=== PATIENT | female | born 1975 | race Caucasian/White ===

== ENCOUNTER → 2021-04-28 14:50 | Outpatient (CLI) | payer BC, SELFPAY ==
--- NOTE | ~2021-04-28 | MR_ITS ---
EXAMINATION: MR thoracic spine wo con DATE: 04/28/2021 16:00 INDICATION: Chronic midthoracic compression fractures with middle back pain TECHNIQUE: Magnetic resonance imaging (MRI) of the thoracic spine was performed without intravenous c ontrast. Sagittal localizer T1-weighted FSE of the cervicothoracic spine was obtained. Thoracic spine sequences included sagittal T2-weighted FSE, sagittal T1-weighted SE, Sagittal T2-weighted FS FSE, a nd axial T2-weighted FSE. COMPARISON: None FINDINGS: Alignment is normal.T7 and T8 compression fractures with20%anterior vertebral body height loss. There are also Schmorl's nodes along the superior endplates of both vertebral bodies.There is mild edema u nderlying both the superior endplates suggesting this is subacute. Many vertebral body heights are no rmal with normal marrow signal. Normal disc heights and signal throughout the thoracic spine. Central canal is patent throughout. There is normal spinal cord signal. The conus terminates at L1. 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 No significant neural foraminal stenosis. Paravertebral soft tissues are unremarkable. IMPRESSION: 1. Marrow edema associated with mild compression fractures at T7 and T8 suggesting these are subacute . Reviewed, dictated and finalized at location A. 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 Marrow edema associated with mild compression fractures at T7 and T8 suggest ing these are subacute.
== END ==
PROVIDERS: PCP Family Medicine
DX: S22.060A Wedge compression fracture of T7-T8 vertebra, initial encounter for closed fracture (principal); X58.XXXA Exposure to other specified factors, initial encounter
CPT/HCPCS: 72146

== ENCOUNTER 2023-12-12 03:37 | Day surgery (SDC) | payer OTHER, SELFPAY ==
[2023-11-29 08:49] VITALS: BMI 30.8
[2023-12-12 06:10] VITALS: BP 109/54; PULSE 72; RESP 16; TEMP 35.7; O2SAT 99; BMI 30.4
[2023-12-12] MEDS: LACTATED RINGERS 1,000 ML 150 ML IV CONT (06:33)
--- NOTE | 2023-12-12 06:55 | WPDANESEPPF ---
Anes - Initial Pre Proc Eval Procedure: Operation Date: 12/12/23 07:30 Proposed Procedures p Screening Colonoscopy - Jason Golden MD Date/Time: 12/12/23 06:55 Surgeon: Jason Golden MD Pre Op Diagnosis: screening neoplasm of colon Patient Data Age: 48 Gender: F Height: 1.65 m Weight: 83.1 kg Last Vital Signs Temp 35.7 C L 12/12/23 06:10 Pulse 72 12/12/23 06:10 Resp 16 12/12/23 06:10 BP 109/54 L 12/12/23 06:10 Pulse Ox 99 12/12/23 06:10 O2 Del Method Room Air 12/12/23 06:10 Allergies Allergy/AdvReac Type Severity Reaction Status Date / Time azithromycin Allergy Unknown upset Verified 12/12/23 06:18 stomach Home Medications Medication Instructions Recorded Confirmed Type calcium citrate 250 mg PO DAILY 01/30/20 12/12/23 History estradiol 1 mg tablet 0.5 mg PO DAILY #90 tabs 07/18/23 12/12/23 Rx ascorbic acid (vitamin C) 500 mg 500 mg PO DAILY 11/29/23 12/12/23 History chewable tablet magnesium 100 mg tablet 100 mg PO DAILY 11/29/23 12/12/23 History progesterone micronized 200 mg 200 mg PO DAILY 11/29/23 12/12/23 History capsule rosuvastatin 5 mg tablet 5 mg PO DAILY #90 tabs 12/11/23 12/12/23 Rx Patient hx anesthesia problems: none Family hx anesthesia problems: none Results Review: All pre-operative results and documents have been reviewed as part of the pre-operative evaluation. [facility] Past Medical History Medical History Asthma no inhaler Back fracture T7-T8 fracture fell on ice Dermatillomania in adult Dermatitis High cholesterol Screening mammogram, encounter for Screening mammogram, encounter for Surgical History Surgical History H/O adenoidectomy History of endometrial ablation (10/13/13) NovaSure endometrial ablation, hscope, D&C- benign History of tonsillectomy as child Family History Family History Father Family history of elevated blood lipids Mother Family history of elevated blood lipids Grandparent Acute myocardial infarction Carcinoma of colon Family history of coronary artery disease Other Diabetes mellitus Social History Social History Social History: Caffeine-occasionally Smoking status: Former smoker Tobacco type: cigarettes Second hand tobacco smoke exposure: No Smoking end date: 02/21/16 Additional smoking assessment comments: 1ppw Alcohol intake: current Drinks per week: 2 Alcohol use details: wine- socially Substance use: never Substance use type: does not use Do You Feel Safe in your Home?: Yes Lack of Transportation: No Lack of Food: Never True Current Housing: I Have Housing Concerned About Future Housing: No Difficulty Paying Gas/Electric Bills: No Difficulty Paying for Meds: No Currently Unemployed: No Education: Bachelor's Degree Difficulty w/ Childcare or Family Care: No Living arrangements: with family Additional living arrangements comments: spouse Occupation/Education: occupation Additional occupation/education comments: [employer] Gender identity (if verbalized by the patient): Female Sexual Orientation (if Verbalized by the Patient): Straight or Heterosexual Spiritual care concerns: No Anes - Eval Final PreProcedure Day of Procedure 12/12/23 06:55 Patient weight: overweight Heart: regular rate and rhythm Lungs: clear to auscultation Airway: Mallampati scale class II Neurological: alert and oriented Last oral intake: >/= 8 hours ASA classification: II Emergent: no Anesthetic plan: proceed Anesthesia type and monitoring: general GIVS and standard monitoring Results Review: All pre-operative results and documents have been reviewed as part of the pre-operative evaluation. Informed Consent: The patient's anesthetic plan and its attendant risks and benefits were discussed with the patient/family/POA. Questions were solicited and answers provided to the satisfaction of the patient/family/POA.
--- NOTE | 2023-12-12 07:29 | P.HP_ITS ---
H&P: HPI History of Present Illness Date/Time: 12/12/23 07:29 Chief Complaint: screening colonoscopy Narrative: This is the patient's first colonoscopy. There are no GI symptoms and there is no family history of colorectal cancer. Review of Systems Review of Systems: All systems reviewed & are unremarkable except as noted in HPI and below PMFSH Past Medical History Medical History Asthma no inhaler Back fracture T7-T8 fracture fell on ice Dermatillomania in adult Dermatitis High cholesterol Screening mammogram, encounter for Screening mammogram, encounter for Surgical History Surgical History H/O adenoidectomy History of endometrial ablation (10/13/13) NovaSure endometrial ablation, hscope, D&C- benign History of tonsillectomy as child Family History Family History Father Family history of elevated blood lipids Mother Family history of elevated blood lipids Grandparent Acute myocardial infarction Carcinoma of colon Family history of coronary artery disease Other Diabetes mellitus Social History Social History Social History: Caffeine-occasionally Smoking status: Former smoker Tobacco type: cigarettes Second hand tobacco smoke exposure: No Smoking end date: 02/21/16 Additional smoking assessment comments: 1ppw Alcohol intake: current Drinks per week: 2 Alcohol use details: wine- socially Substance use: never Substance use type: does not use Do You Feel Safe in your Home?: Yes Lack of Transportation: No Lack of Food: Never True Current Housing: I Have Housing Concerned About Future Housing: No Difficulty Paying Gas/Electric Bills: No Difficulty Paying for Meds: No Currently Unemployed: No Education: Bachelor's Degree Difficulty w/ Childcare or Family Care: No Living arrangements: with family Additional living arrangements comments: spouse Occupation/Education: occupation Additional occupation/education comments: [employer] Gender identity (if verbalized by the patient): Female Sexual Orientation (if Verbalized by the Patient): Straight or Heterosexual Spiritual care concerns: No Meds Home Medications and Allergies Home Medications Medication Instructions Recorded Confirmed Type calcium citrate 250 mg PO DAILY 01/30/20 12/12/23 History estradiol 1 mg tablet 0.5 mg PO DAILY #90 tabs 07/18/23 12/12/23 Rx ascorbic acid (vitamin C) 500 mg 500 mg PO DAILY 11/29/23 12/12/23 History chewable tablet magnesium 100 mg tablet 100 mg PO DAILY 11/29/23 12/12/23 History progesterone micronized 200 mg 200 mg PO DAILY 11/29/23 12/12/23 History capsule rosuvastatin 5 mg tablet 5 mg PO DAILY #90 tabs 12/11/23 12/12/23 Rx Allergies Allergy/AdvReac Type Severity Reaction Status Date / Time azithromycin Allergy Unknown upset Verified 12/12/23 06:18 stomach Vital Signs Vital Signs - 24 hr 12/12/23 06:10 Temperature 96.3 F L Pulse Rate 72 Respiratory Rate 16 Blood Pressure 109/54 L Pulse Oximetry 99 Oxygen Delivery Room Air Assessment and Plan Assessment and plan (1) Screening for colon cancer: Code(s): Z12.11 - Encounter for screening for malignant neoplasm of colon Status: Acute Plan The patient is deemed a good candidate for the procedure. Consent signed. Will proceed.
[2023-12-12 08:23] LABS: BEDSIDEPREGUCG Negative (Negative)
[2023-12-12 08:24] VITALS: BP 115/67; PULSE 74; RESP 20; O2SAT 100
[2023-12-12 08:34] VITALS: BP 115/67; PULSE 72; RESP 17; O2SAT 100
[2023-12-12 08:43] VITALS: BP 112/67; PULSE 67; RESP 17; O2SAT 100
== END 2023-12-12 08:51 | disposition home or self-care (01) ==
PROVIDERS: PCP Family Medicine; Visit Provider Internal Medicine Gastroenterology
PROC: 0DJD8ZZ Inspection of Lower Intestinal Tract, Via Natural or Artificial Opening Endoscopic (ICD-10-PCS; CPT 45378; principal; 2023-12-12 07:30)
DX: Z12.11 Encounter for screening for malignant neoplasm of colon (principal); D12.3 Benign neoplasm of transverse colon; K63.5 Polyp of colon; K57.30 Diverticulosis of large intestine without perforation or abscess without bleeding; J45.909 Unspecified asthma, uncomplicated; E78.00 Pure hypercholesterolemia, unspecified; Z98.890 Other specified postprocedural states; Z98.891 History of uterine scar from previous surgery; Z87.891 Personal history of nicotine dependence; Z80.0 Family history of malignant neoplasm of digestive organs; Z82.49 Family history of ischemic heart disease and other diseases of the circulatory system
CPT/HCPCS: 45390; 88305; J2003; J2371; J2704; J7120

== ENCOUNTER 2024-10-04 14:33 | Outpatient (CLI) | payer OTHER, SELFPAY ==
--- NOTE | ~2024-10-04 | MM_ITS ---
EXAMINATION: MM screening jarrell BI w michelle HISTORY: Screening TECHNIQUE: Craniocaudal and mediolateral oblique 3-D tomosynthesis images were obtained and synthetic 2-D images were generated. CAD analysis was submitted and interpreted. COMPARISON: No prior mammogram is available for comparison at this institution. BREAST PARENCHYMAL COMPOSITION: Not dense: There are scattered areas of fibroglandular density. FINDINGS: There is no evidence of suspicious mass, calcification, or architectural distortion to sugg est malignancy in either breast. There has been no suspicious interval change. IMPRESSION: 1. No mammographic evidence of malignancy. 2. Recommend routine screening mammography in one year. BI-RADS Category 1: Negative Reviewed, dictated and finalized at location A.
== END 2024-10-04 14:34 | disposition home or self-care (01) ==
LOC: CHSIMG 14:35
PROVIDERS: PCP Obstetrics & Gynecology; Visit Provider Obstetrics & Gynecology
DX: Z12.31 Encounter for screening mammogram for malignant neoplasm of breast (principal)
CPT/HCPCS: 77063; 77067

== ENCOUNTER 2024-12-02 04:01 | Day surgery (SDC) | payer OTHER, SELFPAY ==
--- OUTSIDE RECORDS SUMMARY | 2021-05-26 03:00 | XMS_ITS | Continuity of Care Document ---
Author Organization [facility] Address [address] [place] [address] Phone Care Team Providers Care Concreting Supervisor Name Role Phone Nathen PT,MPT,ATC, Isidro Unavailable Unavai lable Procedures Procedure Date Therapeutic Activities Neuromuscular Re-Ed Therapeutic Exercise Therapeutic Activities Neuromuscular Re-Ed Neuromuscular Re-Ed Therapeutic Activities Therapeutic Exercise Therapeutic Activities Neuromuscular Re-Ed Therapeutic Exercise PT Evaluation Moderate Complexity Neuromuscular Re-Ed Therapeutic Activities Advance Directives Directive Yes / No Effective Date File Name No Information Encounters Encounter Description Practice Location Reason(s) For Visit Diagnoses Date Provider Providers Copied on Encounter [facility], [place], [place], [id number], tel:[phone] [place] No Information 2 [place]. Referring Provider: Kacey Cárdenas, [address] [place], [address]. tel:[phone] [facility], [address], [place], [place], [id number], tel:[phone] [place] No Information 2 [place]. Referring Provider: Kacey Cárdenas, [address] [place], [address]. tel:[phone] [facility], [address] [address], [place], [place], [id number], tel:[phone] [place] No Information Apr- 2 [place], [place], . Referring Provider: Kacey Cárdenas, [address] [place], [address]. tel:[phone] [facility] [address], [id number], tel:[phone] [place] No Information Apr- 2 [place], . Referring Provider: Kacey Cárdenas, [address] [place], [address]. tel:[phone] [facility], [id number], tel:[phone] [place] No Information Apr- 2 [place], [place], . Referring Provider: Kacey Cárdenas, [address] [place], [address]. tel:[phone] Family History Family Member Type Diagnosis Age At Onset No Information Payers Payer name Insurance type Covered constitution party ID Authormigdalia marilu(s) [facility] [id number] [employer] [id number] Secondary CI 00 Social History Type Description Quantity Date Captured Comments Sex Female Smoking Status No Information Chief Complaint And Reason For Visit No Information Reason For Referral Reason For Referral No Information History Of Present Illness Encounter Date Complaint History Of Prese nt Illness No Information Functional Status Date Functional Assessmen t No Information Instructions Date Instruction Additional Infor mation Giving encouragement to exercise Related to Overweight Giving encouragement to exercise Related to Overweight Assessments Type Assessment Date No Information Patient Care Teams Name Effective Dates (start - stop) Status Members No Information
[2024-11-26 13:51] VITALS: BMI 31.1
--- NOTE | 2024-12-02 07:11 | P.PNAN_ITS ---
Anes - Initial Pre Proc Eval Procedure: Operation Date: 12/02/24 09:30 Proposed Procedures p Screening Colonoscopy - Jason Golden MD Date/Time: 12/02/24 07:11 Surgeon: Jason Golden MD Pre Op Diagnosis: Personal history of colon polyps, unspecified Patient Data Age: 49 Gender: F Height: 1.65 m Weight: 85 kg Allergies Allergy/AdvReac Type Severity Reaction Status Date / Time azithromycin Allergy Unknown upset Verified 12/02/24 08:11 stomach Home Medications ?Medication ?Instructions ?Recorded ?Confirmed ?Type calcium citrate 250 mg PO DAILY 01/30/20 History ascorbic acid (vitamin C) 500 mg 500 mg PO DAILY 11/2812/02/24 History chewable tablet magnesium 100 mg tablet 100 mg PO DAILY 11/29/23 History rosuvastatin 5 mg tablet 5 mg PO DAILY #90 tabs 08/2612/02/24 Rx estradiol 1 mg tablet 1 mg PO DAILY #90 tabs 09/1012/02/24 Rx progesterone micronized 200 mg 200 mg PO QHS 90 days # 90 caps 09/10/24 12/02/24 Rx capsule (Prometrium) Patient hx anesthesia problems: none Family hx anesthesia problems: none Results Review: All pre-operative results and documents have been reviewed as part of the pre- operative evaluation. [facility] Past Medical History Medical History Dermatitis Dermatillomania in adult Screening mammogram, encounter for High cholesterol Back fracture T7-T8 fracture fell on ice Screening mammogram, encounter for Asthma no inhaler Surgical History Surgical History History of endometrial ablation (10/13/13) NovaSure endometrial ablation, hscope, D&C- benign History of tonsillectomy as child H/O adenoidectomy Family History Family History Father Family history of elevated blood lipids Mother Family history of elevated blood lipids Grandparent Acute myocardial infarction Carcinoma of colon Family history of coronary artery disease Other Diabetes mellitus Social History Social History Social History: Caffeine-occasionally Years smoked: 10 Smoking status: Former smoker Tobacco type: cigarettes Second hand tobacco smoke exposure: No Smoking end date: 02/21/16 Additional smoking assessment comments: 1ppw Alcohol intake: current Drinks per week: 2 Alcohol use details: wine- socially Substance use: never Substance use type: does not use Do You Feel Safe in your Home?: Yes Lack of Transportation: No Lack of Food: Never True Current Housing: I Have Housing Concerned About Future Housing: No Difficulty Paying Gas/Electric Bills: No Difficulty Paying for Meds: No Currently Unemployed: No Education: Bachelor's Degree Difficulty w/ Childcare or Family Care: No Living arrangements: with family Additional living arrangements comments: spouse Occupation/Education: occupation Additional occupation/education comments: [employer] Gender identity (if verbalized by the patient): Female Sexual Orientation (if Verbalized by the Patient): Straight or Heterosexual Spiritual care concerns: No Anes - Eval Final PreProcedure Day of Procedure 12/02/24 07:11 Patient weight: obese Heart: regular rate and rhythm Lungs: clear to auscultation Airway: Mallampati scale class II Neurological: alert and oriented Last oral intake: >/= 8 hours ASA classification: II Emergent: no Anesthetic plan: proceed Anesthesia type and monitoring: general GIVS and standard monitoring Results Review: All pre-operative results and documents have been reviewed as part of the pre-operative evaluation. Informed Consent: The patient's anesthetic plan and its attendant risks and benefits were discussed with the patient/family/POA. Questions were solicited and answers provided to the satisfaction of the patient/family/POA.
[2024-12-02 08:13] VITALS: BP 120/76; PULSE 78; RESP 18; TEMP 36; O2SAT 99
[2024-12-02] MEDS: LACTATED RINGERS 1,000 ML 150 ML IV CONT (08:22)
--- NOTE | 2024-12-02 09:15 | PM.IMHP ---
H&P: HPI History of Present Illness Date/Time: 12/02/24 09:15 Chief Complaint: History of colon polyps Narrative: in November last year, 2 large polyps were resected, 1 was a tubular adenoma the other 1 was a sessile serrated adenoma. She is here for a 1 year follow-up colonoscopy. Review of Systems Review of Systems: All systems reviewed & are unremarkable except as noted in HPI and below PMFSH Past Medical History Medical History Dermatitis Dermatillomania in adult Screening mammogram, encounter for High cholesterol Back fracture T7-T8 fracture fell on ice Screening mammogram, encounter for Asthma no inhaler Surgical History Surgical History History of endometrial ablation (10/13/13) NovaSure endometrial ablation, hscope, D&C- benign History of tonsillectomy as child H/O adenoidectomy Family History Family History Father Family history of elevated blood lipids Mother Family history of elevated blood lipids Grandparent Acute myocardial infarction Carcinoma of colon Family history of coronary artery disease Other Diabetes mellitus Social History Social History Social History: Caffeine-occasionally Years smoked: 10 Smoking status: Former smoker Tobacco type: cigarettes Second hand tobacco smoke exposure: No Smoking end date: 02/21/16 Additional smoking assessment comments: 1ppw Alcohol intake: current Drinks per week: 2 Alcohol use details: wine- socially Substance use: never Substance use type: does not use Do You Feel Safe in your Home?: Yes Lack of Transportation: No Lack of Food: Never True Current Housing: I Have Housing Concerned About Future Housing: No Difficulty Paying Gas/Electric Bills: No Difficulty Paying for Meds: No Currently Unemployed: No Education: Bachelor's Degree Difficulty w/ Childcare or Family Care: No Living arrangements: with family Additional living arrangements comments: spouse Occupation/Education: occupation Additional occupation/education comments: [employer] Gender identity (if verbalized by the patient): Female Sexual Orientation (if Verbalized by the Patient): Straight or Heterosexual Spiritual care concerns: No Meds Home Medications and Allergies Home Medications ?Medication ?Instructions ?Recorded ?Confirmed ?Type calcium citrate 250 mg PO DAILY 01/30/20 12/02/24 History ascorbic acid (vitamin C) 500 mg 500 mg PO DAILY 11/29/23 12/02/24 History chewable tablet magnesium 100 mg tablet 100 mg PO DAILY 11/29/23 12/02/24 History rosuvastatin 5 mg tablet 5 mg PO DAILY #90 tabs 08/26/24 12/02/24 Rx estradiol 1 mg tablet 1 mg PO DAILY #90 tabs 09/10/24 12/02/24 Rx progesterone micronized 200 mg 200 mg PO QHS 90 days #90 caps 09/10/24 12/02/24 Rx capsule (Prometrium) Allergies Allergy/AdvReac Type Severity Reaction Status Date / Time azithromycin Allergy Unknown upset Verified 12/02/24 08:11 stomach Vital Signs Vital Signs - 24 hr 12/02/24 08:13 Temperature 96.8 F L Pulse Rate 78 Respiratory Rate 18 Blood Pressure 120/76 Pulse Oximetry 99 Oxygen Delivery Room Air Exam Const: General: cooperative and healthy appearing Resp: Effort & Inspection: normal respiratory effort and able to speak in complete sentences Auscultation: clear to auscultation bilaterally Cardio: Rate: regular rate Rhythm: regular rhythm GI: Inspection: normal to inspection GI Palp: No No hepatosplenomegaly present Auscultation: normal bowel sounds Rectal Exam: deferred Skin: General skin exam: normal color Psych: Appearance: grossly normal Mental Status: mental status grossly normal Assessment and Plan Assessment and plan (1) History of colonic polyps: Code(s): Z86.0100 - Personal history of colon polyps, unspecified Status: Acute Assessment and Plan: The patient is deemed a good candidate for the procedure. Consent signed. Will proceed.
--- NOTE | 2024-12-02 09:42 | S_PTH ---
PATIENT: Maira Espinoza LOC: [facility] U#:[id number] AGE/SX: 49/F ROOM: RE12/02/[address]: Jason Golden MD : 1975 BED: DIS: 12/02/2024 SPEC #: [id number] RECD: 12/02/24 10:37 STATUS: AMRIT REQ #: [id number] GIGI: 12/02/24 09:[address]: Jason Golden DEPT: [facility] Surgical RECD BY: Neelima Anderson MLT, ([facility]) ENTERED: 12/02/24 10:38 SP TYPE: Surgical OTHR DR: Joycelyn Collins DO Tissues: A - Colon Polypectomy Procedures: Hematoxylin and Eosin Stain Gross and Microscopic Level 4
[2024-12-02 09:43] VITALS: BP 115/58; PULSE 76; RESP 30; O2SAT 100
[2024-12-02 09:53] VITALS: BP 112/73; PULSE 61; RESP 25; O2SAT 100
[2024-12-02 10:03] VITALS: BP 114/78; PULSE 60; RESP 26; O2SAT 100
== END 2024-12-02 10:12 | disposition home or self-care (01) ==
PROVIDERS: PCP Family Medicine; Referring Provider Internal Medicine Gastroenterology; Visit Provider Internal Medicine Gastroenterology
PROC: 0DJD8ZZ Inspection of Lower Intestinal Tract, Via Natural or Artificial Opening Endoscopic (ICD-10-PCS; CPT 45378; principal; 2024-12-02 09:30)
DX: Z09 Encounter for follow-up examination after completed treatment for conditions other than malignant neoplasm (principal); D12.2 Benign neoplasm of ascending colon; E78.00 Pure hypercholesterolemia, unspecified; J45.909 Unspecified asthma, uncomplicated; L30.9 Dermatitis, unspecified; E66.9 Obesity, unspecified; Z68.30 Body mass index [BMI] 30.0-30.9, adult; Z98.890 Other specified postprocedural states; Z98.891 History of uterine scar from previous surgery; Z87.891 Personal history of nicotine dependence; Z80.0 Family history of malignant neoplasm of digestive organs; Z82.49 Family history of ischemic heart disease and other diseases of the circulatory system
CPT/HCPCS: 45385; 88305; J2704; J7120